=== PATIENT | female | born 1965 | race Caucasian/White ===

== ENCOUNTER → 2017-07-23 | Outpatient (CLI) | payer MEDICAID ==
--- NOTE | 2017-07-24 16:07 | CPEEG ---
[f rep st] ELECTROENCEPHALOGRAM FOUR-HOUR VIDEO EEG DATE OF STUDY: 07/23/2017 DATE OF INTERPRETATION: July 24, 2017. INTERPRETATION: This 4-hour EEG contains rare, potentially epileptogenic abnormalities over the left frontal head region. These findings would be consistent with a focal seizure disorder. There were no clinical events or seizure discharges present during the awake or sleep recordings. REPORT: This 4-hour video EEG contains 9-10 Hz alpha to the posterior head regions. There was no definite abnormal activation at rest, during photic stimulation or hyperventilation. The patient intermittently fell asleep throughout the study with sleep activity occurring paroxysmally, including K complexes, during the recording. During sustained sleep, the patient had rare activation of left frontal sharp waves. There were no clinical events recorded during the video EEG monitoring session or electrographic seizure discharges present. /[id number]/MODL MTDD
== END ==
LOC: FCPNEURO 11:50
PROVIDERS: ATTEND Psychiatry & Neurology Neurology
DX: Z86.69 Personal history of other diseases of the nervous system and sense organs (principal)

== ENCOUNTER → 2018-10-22 | Outpatient (CLI) | payer MEDICAID | LOC: FIMAGING 13:56 ==